=== PATIENT | female | born 1960 | race Caucasian/White ===

== ENCOUNTER 2019-12-21 07:47 | Outpatient (CLI) | payer OTHER, BC, SELFPAY ==
--- NOTE | ~2019-12-21 | MM_ITS ---
EXAMINATION: MM screening [facility] [place] BI w [facility] HISTORY: Screening mammogram TECHNIQUE: Craniocaudal and mediolateral oblique 3-D tomosynthesis images were obtained and synthetic 2-D images were generated. CAD analysis was submitted and interpreted. COMPARISON: 12/12/2018, 09/14/2017, 07/10/2016 BREAST PARENCHYMAL COMPOSITION: There are scattered areas of fibroglandular density. FINDINGS: There is no evidence of suspicious mass, calcification, or architectural distortion to sugg est malignancy in either breast. There has been no suspicious interval change. IMPRESSION: 1. No mammographic evidence of malignancy. 2. Recommend routine screening mammography in one year. BI-RADS Category 1: Negative Reviewed, dictated and finalized at location A.
== END 2019-12-21 07:48 | disposition home or self-care (01) ==
LOC: ANHIMG 07:52
PROVIDERS: PCP Nurse Practitioner; Visit Provider Nurse Practitioner
DX: Z12.31 Encounter for screening mammogram for malignant neoplasm of breast (principal)
CPT/HCPCS: 77063; 77067